=== PATIENT | female | born 1995 | race Caucasian/White ===

== ENCOUNTER → 2021-03-23 | Outpatient (CLI) | payer BC ==
[~2021-03-23] VITALS: Ht 157.5 cm; Wt 117.9 kg
[~2021-03-23] MED LIST: BENTYL 10 MG CA10 MG PO; PIRMELLA1 EAC1 PO
--- NOTE | 2021-03-26 12:07 | PATH ---
[facility] [address] [place] [address] PATHOLOGY RPT PROCEDURE Name: LIZETTE PRADO Room #: REG MABEL Kimberly.#: [id number] Admission: 03/23/21 Date of : 89 Discharge: Report #: [id number] Path Case #: [id number] [facility] Accession Number: [id number] . 01 Material submitted: . PART A: duodenum - DUODENUM BX - R/O CELIAC PART B: ANTRUM - ANTRUM BX - R/O H PYLORI . 01 Clinical history: . EGD PERIUMBILICAL ABDOMINAC PAIN, ALT DIARRHEA/CONSTIPATION GASTRITIS . 02 Diagnosis: A. Small bowel mucosa, duodenum, rule out celiac, endoscopic biopsy: - No diagnostic abnormalities present. - Negative for villous blunting or increase in intraepithelial lymphocytes. . B. Gastric mucosa, antrum, rule out H. pylori, endoscopic biopsy: - Mild reactive gastropathy. - Negative for intestinal metaplasia or atrophy. - Negative for Helicobacter pylori (properly controlled immunohistochemical performed). (IUV:pit; 03/25/2021) QTP 03/25/2021 1324 Local . 02 Electronically signed: . Marta Mckeon MD, Pathologist NPI- [id number] . 01 Gross description: . A. Received in formalin labeled "Lizette Prado duodenum biopsy rule out celiac" are 2 fragments of grande-brown soft tissue measuring 0.6-0.4 x 0.3 cm and 0.5 x 0.4 x 0.3 cm. The specimen is submitted entirely in A1. . B. Received in formalin labeled "Lizette Prado antrum biopsy rule out H. pylori" is a fragment of grande-brown soft tissue measuring 0.7 x 0.5 x 0.3 cm. The specimen is submitted entirely in B1. ([facility]; 03/24/2021) GZA/GZA 03/24/2021 1653 Local . 02 Pathologist provided ICD-10: K31.9, R10.9, R19.7, K59.00 . 02 CPT . 689516, 148227, [id number] Specimen Comment: A courtesy copy of this report has been sent to [phone], [address] [address] PATHOLOGY RPT PROCEDURE Name: LIZETTE PRADO Room #: REG [facility]..#: [id number] Admission: 03/23/21 Date of : 89 Discharge: Report #: [id number] Path Case #: [id number] Specimen Comment: [id number] Specimen Comment: Report sent to / DR MTZ Specimen Comment: A duplicate report has been generated due to demographic updates. Performed at: [address], [place] [id number] MD Adis Sherman MD Phone: [phone] Performed at: [address] [id number] MD Marta Mckeon MD Phone: [phone]
== END | disposition home or self-care (01) ==
LOC: GI 09:46
PROVIDERS: ATTEND Internal Medicine Gastroenterology
DX: R10.84 Generalized abdominal pain (principal); R19.4 Change in bowel habit; K31.9 Disease of stomach and duodenum, unspecified; K21.9 Gastro-esophageal reflux disease without esophagitis; Z98.890 Other specified postprocedural states; Z79.899 Other long term (current) drug therapy
CPT/HCPCS: 62110; 62900